=== PATIENT | female | born 1980 | race Caucasian/White ===

== ENCOUNTER 2017-08-06 22:59 | Inpatient (IN) | payer OTHER ==
[~2017-08-06] VITALS: Ht 170.2 cm; Wt 3.2 kg
[2017-08-07] MEDS ORDERED: FOLIC ACID1 MG PO (08:40)
[2017-08-07] MEDS ORDERED: PRENATABS FA T1 EACH PO (08:40)
[2017-08-10] MEDS ORDERED: IBUPROFEN800 MG PO (08:45)
[2017-08-10] MEDS ORDERED: SURFAK240 M1 PO (08:45)
== END 2017-08-10 15:25 | DRG 766 ==
LOC: OB/GYN 22:59 → LDR 22:59 → OB/GYN 08-07 02:33
PROVIDERS: Obstetrics & Gynecology
PROC: 4A1HXCZ Monitoring of Products of Conception, Cardiac Rate, External Approach (ICD-10-PCS; 2017-08-06)
PROC: 0UT70ZZ Resection of Bilateral Fallopian Tubes, Open Approach (ICD-10-PCS; 2017-08-07)
PROC: 4A033R1 Measurement of Arterial Saturation, Peripheral, Percutaneous Approach (ICD-10-PCS; 2017-08-07)
PROC: 10D00Z1 Extraction of Products of Conception, Low, Open Approach (ICD-10-PCS; principal; 2017-08-07 07:00)
DX: O34.211 Maternal care for low transverse scar from previous cesarean delivery (principal); Z3A.38 38 weeks gestation of pregnancy; Z37.0 Single live birth